=== PATIENT | female | born 1990 | race Caucasian/White ===

== ENCOUNTER 2016-09-13 11:25 | Emergency (ER) | payer BC ==
[2016-09-13] MEDS ORDERED: Ketorolac 30 MG/ML SDV IVPUSH ONE (12:03)
[2016-09-13] MEDS ORDERED: Ondansetron 4 MG/2 ML SDV IVPUSH ONE (12:03)
[2016-09-13] MEDS ORDERED: Morphine 10 MG/ML Syringe IV ONE ×2 (12:03→13:21)
[2016-09-13] MEDS ORDERED: Sodium Chloride 0.9% 1,000 ML IV ONE ×2 (12:03→13:21)
--- NOTE | 2016-09-13 12:25 | EDM.PDOC ---
ED HPI GENERAL MEDICAL PROBLEM - General Chief Complaint: Abdominal Pain Stated Complaint: LOWER ABDOMINAL PAIN/CERVICAL Time Seen by Provider: 09/13/16 11:50 Source of Information: Reports: Patient History Limitations: Reports: No Limitations - History of Present Illness INITIAL COMMENTS - FREE TEXT/NARRATIVE: History of present illness: [26-year-old female comes in complaining of lower pelvic and cervical pain. Patient indicates she has had A ectopic before and subsequent miscarriage and feels this is very similar. Patient indicates that her period is due and she has not had it.] Review of systems: As per history of present illness and below otherwise all systems reviewed and negative. Past medical history: As per history of present illness and as reviewed below otherwise noncontributory. Surgical history: As per history of present illness and as reviewed below otherwise noncontributory. Social history: No reported history of drug or alcohol abuse. Family history: As per history of present illness and as reviewed below otherwise noncontributory. Physical exam: HEENT: Atraumatic, normocephalic, pupils reactive, negative for conjunctival pallor or scleral icterus, mucous membranes moist, throat clear, neck supple, nontender, trachea midline. Lungs: Clear to auscultation, breath sounds equal bilaterally, chest nontender. Heart: S1S2, regular, negative for clicks, rubs, or JVD. Abdomen: Soft, nondistended, diffuse tenderness patient indicates is primarily deep pelvic radiating to her lower back. Negative for masses or hepatosplenomegaly. Negative for costovertebral tenderness. Pelvis: Stable nontender. Genitourinary: Deferred. Rectal: Deferred. Extremities: Atraumatic, negative for cords or calf pain. Neurovascular unremarkable. Neuro: Awake, alert, oriented. Cranial nerves II through XII unremarkable. Cerebellum unremarkable. Motor and sensory unremarkable throughout. Exam nonfocal. Clinical assessment is benign save and as noted in the subjective complaint of deep pelvic pain. Patient is extremely uncomfortable and restless. Ultrasound was negative for any pelvic issues save A small amount of fluid. Patient denies any history of STDs. Patient serum negative for . Patient is aware of these results and is agreeable to follow-up with CHEMICAL RECLAMATION EQUIPMENT OPERATOR indicating she has had some concerns that she might have endometriosis. Diagnostics: [CBC, CMP, Rh, urine, hCG, transvaginal] Therapeutics: [IV fluid, Zofran, Toradol, morphine] Impression: [Abdominal/pelvic pain] Plan: [Brief run of pain medicine follow-up with CHEMICAL RECLAMATION EQUIPMENT OPERATOR] Definitive disposition and diagnosis as appropriate pending reevaluation and review of above. 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 , - Past Surgical History GI Surgical History: Reports: Appendectomy Female Surgical History: Reports: Section, Other (See Below) Other Female Surgeries/Procedures: 1 tube ligation; ectopic Social & Family History - Family History Family Medical History: Noncontributory - Tobacco Use Smoking Status *Q: Never Smoker - Caffeine Use Caffeine Use: Reports: Coffee Caffeine Use Comment: 1 cup daily - Recreational Drug Use Recreational Drug Use: Yes Drug Use in Last 12 Months: Yes Recreational Drug Type: Reports: Marijuana/Hashish Recreational Drug Use Frequency: Binges ED ROS GENERAL - Review of Systems Review Of Systems: See Below (See history of present illness) ED EXAM, GENERAL - Physical Exam Exam: See Below (See history of present illness) Course - Vital Signs Last Recorded V/S: Last Vital Signs Temp 36.6 C 09/13/16 11:37 Pulse 50 L 09/13/16 11:37 Resp 20 09/13/16 11:37 BP 94/63 09/13/16 11:37 Pulse Ox 98 09/13/16 11:37 - Orders/Labs/Meds Orders: Active Orders 24 hr Category Date Time Status OB 1st Tri Sgl 1st Gest [US] Stat Exams 09/13/16 12:05 Taken Labs: Laboratory Tests 09/13/16 09/13/16 09/13/16 Range/Units 11:55 11:55 11:55 WBC 6.42 (4.0-11.0) K/uL RBC 4.18 L (4.30-5.90) M/uL Hgb 12.7 (12.0-16.0) g/dL Hct 38.4 (36.0-46.0) % MCV 91.9 (80.0-98.0) fL MCH 30.4 (27.0-32.0) pg MCHC 33.1 (31.0-37.0) g/dL RDW Std Deviation 44.0 (28.0-62.0) fl RDW Coeff of Jayden 13 (11.0-15.0) % Plt Count 173 (150-400) K/uL MPV 12.70 H (7.40-12.00) fL Neut % (Auto) 55.7 (48.0-80.0) % Lymph % (Auto) 38.5 (16.0-40.0) % [place] % (Auto) 3.9 (0.0-15.0) % Eos % (Auto) 1.6 (0.0-7.0) % Baso % (Auto) 0.3 (0.0-1.5) % Neut # (Auto) 3.6 (1.4-5.7) K/uL Lymph # (Auto) 2.5 H (0.6-2.4) K/uL [place] # (Auto) 0.3 (0.0-0.8) K/uL Eos # (Auto) 0.1 (0.0-0.7) K/uL Baso # (Auto) 0.0 (0.0-0.1) K/uL Nucleated RBC % 0.0 /100WBC Nucleated RBCs # 0 K/uL Sodium 140 (136-146) mmol/L Potassium 4.1 (3.5-5.1) mmol/L Chloride 113 H (98-110) mmol/L Carbon Dioxide 20 L (21-31) mmol/L BUN 20 (6.0-23.0) mg/dL Creatinine 0.9 (0.6-1.5) mg/dL Est Cr Clr Drug Dosing 84.49 mL/min Estimated GFR (MDRD) > 60.0 ml/min Glucose 100 (60-110) mg/dL Calcium 8.5 L (8.8-10.8) mg/dL Total Bilirubin 0.3 (0.1-1.5) mg/dL AST 22 (5-40) IU/L ALT 21 (8-54) IU/L Alkaline Phosphatase 48 (40-150) Total Protein 6.8 (6.0-8.0) g/dL Albumin 4.1 (3.5-5.0) g/dL Globulin 2.7 (2.0-3.5) g/dL Albumin/Globulin Ratio 1.5 (1.3-2.8) HCG, Quant 3.2 mIU/mL Urine Color Urine Appearance Urine pH (5.0-8.0) Ur Specific [place] (1.001-1.035) Urine Protein (NEGATIVE) mg/dL Urine Glucose (UA) (NEGATIVE) mg/dL Urine Ketones (NEGATIVE) mg/dL Urine Occult Blood (NEGATIVE) Urine Nitrite (NEGATIVE) Urine Bilirubin (NEGATIVE) Urine Urobilinogen (<2.0) EU/dL Ur Leukocyte Esterase (NEGATIVE) Urine RBC (0-2/HPF) Urine WBC (0-5/HPF) Ur Epithelial Cells (NONE-FEW) Urine Bacteria (NEGATIVE) Blood Type A POSITIVE 09/13/16 Range/Units 12:10 WBC (4.0-11.0) K/uL RBC (4.30-5.90) M/uL Hgb (12.0-16.0) g/dL Hct (36.0-46.0) % MCV (80.0-98.0) fL MCH (27.0-32.0) pg MCHC (31.0-37.0) g/dL RDW Std Deviation (28.0-62.0) fl RDW Coeff of Jayden (11.0-15.0) % Plt Count (150-400) K/uL MPV (7.40-12.00) fL Neut % (Auto) (48.0-80.0) % Lymph % (Auto) (16.0-40.0) % [place] % (Auto) (0.0-15.0) % Eos % (Auto) (0.0-7.0) % Baso % (Auto) (0.0-1.5) % Neut # (Auto) (1.4-5.7) K/uL Lymph # (Auto) (0.6-2.4) K/uL [place] # (Auto) (0.0-0.8) K/uL Eos # (Auto) (0.0-0.7) K/uL Baso # (Auto) (0.0-0.1) K/uL Nucleated RBC % /100WBC Nucleated RBCs # K/uL Sodium (136-146) mmol/L Potassium (3.5-5.1) mmol/L Chloride (98-110) mmol/L Carbon Dioxide (21-31) mmol/L BUN (6.0-23.0) mg/dL Creatinine (0.6-1.5) mg/dL Est Cr Clr Drug Dosing mL/min Estimated GFR (MDRD) ml/min Glucose (60-110) mg/dL Calcium (8.8-10.8) mg/dL Total Bilirubin (0.1-1.5) mg/dL AST (5-40) IU/L ALT (8-54) IU/L Alkaline Phosphatase (40-150) Total Protein (6.0-8.0) g/dL Albumin (3.5-5.0) g/dL Globulin (2.0-3.5) g/dL Albumin/Globulin Ratio (1.3-2.8) HCG, Quant mIU/mL Urine Color YELLOW Urine Appearance CLEAR Urine pH 6.5 (5.0-8.0) Ur Specific [place] <= 1.005 (1.001-1.035) Urine Protein NEGATIVE (NEGATIVE) mg/dL Urine Glucose (UA) NEGATIVE (NEGATIVE) mg/dL Urine Ketones NEGATIVE (NEGATIVE) mg/dL Urine Occult Blood NEGATIVE (NEGATIVE) Urine Nitrite NEGATIVE (NEGATIVE) Urine Bilirubin NEGATIVE (NEGATIVE) Urine Urobilinogen 0.2 (<2.0) EU/dL Ur Leukocyte Esterase NEGATIVE (NEGATIVE) Urine RBC 0-1 (0-2/HPF) Urine WBC 0-1 (0-5/HPF) Ur Epithelial Cells RARE (NONE-FEW) Urine Bacteria RARE (NEGATIVE) Blood Type Meds: Medications Discontinued Medications Generic Name Dose Route Start Last Admin Trade Name Freq PRN Reason Stop Dose Admin Sodium Chloride 1,000 mls @ 999 mls/hr 09/13/16 12:03 09/13/16 12:21 Normal Saline IV 09/13/16 13:03 999 mls/hr STAT ONE Administration Sodium Chloride 1,000 mls @ 999 mls/hr 09/13/16 13:21 09/13/16 13:44 Normal Saline IV 09/13/16 14:21 999 mls/hr STAT ONE Administration Ketorolac Tromethamine 30 mg 09/13/16 12:03 09/13/16 12:15 Toradol IVPUSH 09/13/16 12:04 30 mg ONETIME ONE Administration Morphine Sulfate 2 mg 09/13/16 12:03 09/13/16 12:23 Morphine IV 09/13/16 12:04 2 mg ONETIME ONE Administration Morphine Sulfate 4 mg 09/13/16 13:21 09/13/16 13:44 Morphine IV 09/13/16 13:22 4 mg ONETIME ONE Administration Ondansetron HCl 8 mg 09/13/16 12:03 09/13/16 12:19 Zofran IVPUSH 09/13/16 12:04 8 mg ONETIME ONE Administration Departure - Departure Time of Disposition: 15:17 Disposition: Home, Self-Care 01 Condition: good Clinical Impression: Abdominal pain - Discharge Information Instructions: Abdominal Pain, Adult, [id number] Forms: ED Department Discharge Additional Instructions: The following information is given to patients seen in the emergency department who are being discharged to home. This information is to outline your options for follow-up care. We provide all patients seen in our emergency department with a follow-up referral. The need for follow-up, as well as the timing and circumstances, are variable depending upon the specifics of your emergency department visit. If you don't have a primary care physician on staff, we will provide you with a referral. We always advise you to contact your personal physician following an emergency department visit to inform them of the circumstance of the visit and for follow-up with them and/or the need for any referrals to a consulting specialist. The emergency department will also refer you to a specialist when appropriate. This referral assures that you have the opportunity for follow-up care with a specialist. All of these measure are taken in an effort to provide you with optimal care, which includes your follow-up. Under all circumstances we always encourage you to contact your private physician who remains a resource for coordinating your care. When calling for follow-up care, please make the office aware that this follow-up is from your recent emergency room visit. If for any reason you are refused follow-up, please contact the [facility] Emergency Department at and asked to speak to the emergency department charge nurse. Take medication as directed Follow-up with CHEMICAL RECLAMATION EQUIPMENT OPERATOR as discussed KATHRYN Follow-up with primary care provider 1-2 days Return to ED as needed as discussed - My Orders Last 24 Hours: My Active Orders 09/13/16 12:05 OB 1st Tri Sgl 1st Gest [US] Stat - Assessment/Plan Last 24 Hours: My Active Orders 09/13/16 12:05 OB 1st Tri Sgl 1st Gest [US] Stat
[2016-09-13 12:35] LABS: CHLORIDE,CL 113 mmol/L (98-110); SODIUM,NA 140 mmol/L (136-146)
[2016-09-13 18:46] VITALS: BP 104/56
--- NOTE | 2016-09-14 11:30 | US ---
EXAM DATE: 09/13/16 PATIENT'S AGE: 26 Patient: TONO BLACKWOOD Facility: [place], [place] Site . Site : 1990 Study: US OB Pelvis [id number] 2:28:31 PM Ordering Physician: Doctor Martin Final Report: INDICATION: . Right lower quadrant pain. Technique: Pelvic ultrasound. Findings: Transabdominal images demonstrate no intrauterine gestational sac. Endometrial thickness is 8 mm. The ovaries are normal size. The left ovary is unremarkable. The right ovary is slightly heterogeneous, with a small posterior cyst possibly corpus luteum. A superficial graded compression exam of the right lower quadrant was performed. The appendix could not be visualized. Trace amount of free fluid is present in the pelvis. IMPRESSION: 1. No detectable intrauterine or retained products of conception. 2. Possible corpus luteum cyst in the right ovary. 3. Trace amount of nonspecific pelvic free fluid. 4. Followup correlation with serial beta HCG level can be considered. 5. No signs for appendicitis on superficial graded compression exam of the right lower quadrant. Dictated by Aiden Gupta MD @ Sep 13 2016 2:42PM (Electronic Signature) Report Signed by Proxy. MARIA ANTONIA
== END 2016-09-13 16:03 | disposition home or self-care (01) ==
LOC: MW.ED 11:25
DX: R10.2 Pelvic and perineal pain (principal); Z79.899 Other long term (current) drug therapy; Z90.49 Acquired absence of other specified parts of digestive tract; Z98.51 Tubal ligation status; Z98.890 Other specified postprocedural states
CPT/HCPCS: 36415; 76801; 80053; 81001; 84702; 85025; 86900; 86901; 96361; 96374; 96375; 96376; 99284; J1885; J2270; J2405; J7040

== ENCOUNTER 2017-04-08 20:02 | Emergency (ER) | payer BC ==
[2017-04-08] MEDS ORDERED: Alum Hydrox/Mag Hydrox/Simeth 15 ML, Metoclopramide 5 MG, Lidocaine 2% 5 ML PO ONE ×3 (20:49)
[2017-04-08] MEDS ORDERED: Sodium Chloride 0.9% 2.5 ML Syringe FLUSH PRN (20:49)
[2017-04-08] MEDS ORDERED: Sodium Chloride 0.9% 10 ML Syringe FLUSH PRN (20:49)
[2017-04-08] MEDS ORDERED: Ketorolac 30 MG/ML SDV IVPUSH ONE (20:49)
[2017-04-08] MEDS ORDERED: Pantoprazole 40 MG Vial IVPUSH ONE (20:51)
--- NOTE | 2017-04-08 21:01 | EDM.PDOC ---
ED HPI GENERAL MEDICAL PROBLEM - General Chief Complaint: Abdominal Pain Stated Complaint: ABD PAIN Time Seen by Provider: 04/08/17 20:15 Source of Information: Reports: Patient History Limitations: Reports: No Limitations - History of Present Illness INITIAL COMMENTS - FREE TEXT/NARRATIVE: History of present illness: [26-year-old female comes in complaining of debilitating upper epigastric pain patient indicates that the pain is so debilitating that in fact it dropped her knees. Patient a slightly grandiose and hyperexcitable.] Review of systems: As per history of present illness and below otherwise all systems reviewed and negative. Past medical history: As per history of present illness and as reviewed below otherwise noncontributory. Surgical history: As per history of present illness and as reviewed below otherwise noncontributory. Social history: No reported history of drug or alcohol abuse. Family history: As per history of present illness and as reviewed below otherwise noncontributory. Physical exam: HEENT: Atraumatic, normocephalic, pupils reactive, negative for conjunctival pallor or scleral icterus, mucous membranes moist, throat clear, neck supple, nontender, trachea midline. Lungs: Clear to auscultation, breath sounds equal bilaterally, chest nontender. Heart: S1S2, regular, negative for clicks, rubs, or JVD. Abdomen: Soft, nondistended, nontender. Negative for masses or hepatosplenomegaly. Negative for costovertebral tenderness. Pelvis: Stable nontender. Genitourinary: Deferred. Rectal: Deferred. Extremities: Atraumatic, negative for cords or calf pain. Neurovascular unremarkable. Neuro: Awake, alert, oriented. Cranial nerves II through XII unremarkable. Cerebellum unremarkable. Motor and sensory unremarkable throughout. Exam nonfocal. Assessment is benign save subjective complaint as noted in the history of present illness patient shouldn't is able to make complete sentences and commonly gesture to the location of her pain which is upper epigastric in nature. Ultrasound of gallbladder negative for any concern Signs and symptoms consistent with GERD Diagnostics: [CBC, CMP, UA, ultrasound of gallbladder] Therapeutics: [] Impression: [Abdominal pain] Plan: [Antiacids] Definitive disposition and diagnosis as appropriate pending reevaluation and review of above. abdominal Pain Score (Numeric/FACES): 7 - Related Data Allergies Allergy/AdvReac Type Severity Reaction Status Date / Time No Known Allergies Allergy Verified 04/08/17 20:22 Home Meds: Home Meds . 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 , Musculoskeletal History: Reports: None Neurological History: Reports: None Psychiatric History: Reports: Autism Endocrine/Metabolic History: Reports: None Hematologic History: Reports: None - Infectious Disease History Infectious Disease History: Reports: Chicken Pox - Past Surgical History HEENT Surgical History: Reports: None GI Surgical History: Reports: Appendectomy Female Surgical History: Reports: Section, Other (See Below) Other Female Surgeries/Procedures: 1 tube ligation; ectopic Social & Family History - Family History Family Medical History: Noncontributory - Tobacco Use Smoking Status *Q: Never Smoker - Caffeine Use Caffeine Use: Reports: Coffee Caffeine Use Comment: 1 cup daily - Recreational Drug Use Recreational Drug Use: Yes Drug Use in Last 12 Months: Yes Recreational Drug Type: Reports: Marijuana/Hashish Recreational Drug Use Frequency: Binges ED ROS GENERAL - Review of Systems Review Of Systems: See Below (See history of present illness) ED EXAM, GENERAL - Physical Exam Exam: See Below (History of present illness) Course - Vital Signs Last Recorded V/S: Last Vital Signs Temp 36.8 C 04/08/17 20:23 Pulse 67 04/08/17 20:23 Resp 16 04/08/17 20:23 BP 110/67 04/08/17 20:23 Pulse Ox 96 04/08/17 20:23 - Orders/Labs/Meds Orders: Active Orders 24 hr Category Date Time Status Gallbladder [Abdomen Ltd] [US] Stat Exams 04/08/17 21:51 Ordered Sodium Chloride 0.9% [Saline Flush] Med 04/08/17 20:49 Active 10 ml FLUSH ASDIRECTED PRN Sodium Chloride 0.9% [Saline Flush] Med 04/08/17 20:49 Active 2.5 ml FLUSH ASDIRECTED PRN Saline Lock Insert [OM.PC] Stat Oth 04/08/17 20:49 Ordered Medication Orders Sodium Chloride (Saline Flush) 10 ml FLUSH ASDIRECTED PRN PRN Reason: Keep Vein Open Last Admin: 04/08/17 21:05 Dose: 10 ml Sodium Chloride (Saline Flush) 2.5 ml FLUSH ASDIRECTED PRN PRN Reason: Keep Vein Open Last Admin: 04/08/17 21:05 Dose: 2.5 ml Labs: Laboratory Tests 04/08/17 04/08/17 04/08/17 Range/Units 20:31 20:31 21:05 WBC 9.83 (4.0-11.0) K/uL RBC 4.68 (4.30-5.90) M/uL Hgb 14.8 (12.0-16.0) g/dL Hct 43.2 (36.0-46.0) % MCV 92.3 (80.0-98.0) fL MCH 31.6 (27.0-32.0) pg MCHC 34.3 (31.0-37.0) g/dL RDW Std Deviation 42.5 (28.0-62.0) fl RDW Coeff of Jayden 13 (11.0-15.0) % Plt Count 194 (150-400) K/uL MPV 12.10 H (7.40-12.00) fL Neut % (Auto) 80.6 H (48.0-80.0) % Lymph % (Auto) 13.6 L (16.0-40.0) % [place] % (Auto) 4.6 (0.0-15.0) % Eos % (Auto) 1.0 (0.0-7.0) % Baso % (Auto) 0.2 (0.0-1.5) % Neut # (Auto) 7.9 H (1.4-5.7) K/uL Lymph # (Auto) 1.3 (0.6-2.4) K/uL [place] # (Auto) 0.5 (0.0-0.8) K/uL Eos # (Auto) 0.1 (0.0-0.7) K/uL Baso # (Auto) 0.0 (0.0-0.1) K/uL Nucleated RBC % 0.0 /100WBC Nucleated RBCs # 0 K/uL Sodium (136-146) mmol/L Potassium (3.5-5.1) mmol/L Chloride (98-110) mmol/L Carbon Dioxide (21-31) mmol/L BUN (6.0-23.0) mg/dL Creatinine (0.6-1.5) mg/dL Est Cr Clr Drug Dosing mL/min Estimated GFR (MDRD) ml/min Glucose (60-110) mg/dL Calcium (8.8-10.8) mg/dL Total Bilirubin (0.1-1.5) mg/dL AST (5-40) IU/L ALT (8-54) IU/L Alkaline Phosphatase (40-150) Troponin I (0.0-0.29) NG/ML Total Protein (6.0-8.0) g/dL Albumin (3.5-5.0) g/dL Globulin (2.0-3.5) g/dL Albumin/Globulin Ratio (1.3-2.8) Amylase (10-90) U/L Lipase (7-80) U/L Urine Color YELLOW Urine Appearance CLEAR Urine pH 6.5 (5.0-8.0) Ur Specific [place] 1.015 (1.001-1.035) Urine Protein NEGATIVE (NEGATIVE) mg/dL Urine Glucose (UA) NEGATIVE (NEGATIVE) mg/dL Urine Ketones NEGATIVE (NEGATIVE) mg/dL Urine Occult Blood NEGATIVE (NEGATIVE) Urine Nitrite NEGATIVE (NEGATIVE) Urine Bilirubin NEGATIVE (NEGATIVE) Urine Urobilinogen 0.2 (<2.0) EU/dL Ur Leukocyte Esterase NEGATIVE (NEGATIVE) Urine RBC 0-1 (0-2/HPF) Urine WBC 0-1 (0-5/HPF) Ur Epithelial Cells FEW (NONE-FEW) Urine Bacteria RARE (NEGATIVE) Urine HCG, Qual NEGATIVE (NEGATIVE) 04/08/17 Range/Units 21:05 WBC (4.0-11.0) K/uL RBC (4.30-5.90) M/uL Hgb (12.0-16.0) g/dL Hct (36.0-46.0) % MCV (80.0-98.0) fL MCH (27.0-32.0) pg MCHC (31.0-37.0) g/dL RDW Std Deviation (28.0-62.0) fl RDW Coeff of Jayden (11.0-15.0) % Plt Count (150-400) K/uL MPV (7.40-12.00) fL Neut % (Auto) (48.0-80.0) % Lymph % (Auto) (16.0-40.0) % [place] % (Auto) (0.0-15.0) % Eos % (Auto) (0.0-7.0) % Baso % (Auto) (0.0-1.5) % Neut # (Auto) (1.4-5.7) K/uL Lymph # (Auto) (0.6-2.4) K/uL [place] # (Auto) (0.0-0.8) K/uL Eos # (Auto) (0.0-0.7) K/uL Baso # (Auto) (0.0-0.1) K/uL Nucleated RBC % /100WBC Nucleated RBCs # K/uL Sodium 139 (136-146) mmol/L Potassium 3.8 (3.5-5.1) mmol/L Chloride 107 (98-110) mmol/L Carbon Dioxide 22 (21-31) mmol/L BUN 20 (6.0-23.0) mg/dL Creatinine 1.1 (0.6-1.5) mg/dL Est Cr Clr Drug Dosing 69.13 mL/min Estimated GFR (MDRD) 59.6 ml/min Glucose 86 (60-110) mg/dL Calcium 9.3 (8.8-10.8) mg/dL Total Bilirubin 0.8 (0.1-1.5) mg/dL AST 19 (5-40) IU/L ALT 16 (8-54) IU/L Alkaline Phosphatase 37 L (40-150) Troponin I < 0.10 (0.0-0.29) NG/ML Total Protein 7.7 (6.0-8.0) g/dL Albumin 4.6 (3.5-5.0) g/dL Globulin 3.1 (2.0-3.5) g/dL Albumin/Globulin Ratio 1.5 (1.3-2.8) Amylase 35 (10-90) U/L Lipase 21 (7-80) U/L Urine Color Urine Appearance Urine pH (5.0-8.0) Ur Specific [place] (1.001-1.035) Urine Protein (NEGATIVE) mg/dL Urine Glucose (UA) (NEGATIVE) mg/dL Urine Ketones (NEGATIVE) mg/dL Urine Occult Blood (NEGATIVE) Urine Nitrite (NEGATIVE) Urine Bilirubin (NEGATIVE) Urine Urobilinogen (<2.0) EU/dL Ur Leukocyte Esterase (NEGATIVE) Urine RBC (0-2/HPF) Urine WBC (0-5/HPF) Ur Epithelial Cells (NONE-FEW) Urine Bacteria (NEGATIVE) Urine HCG, Qual (NEGATIVE) Meds: Medications Generic Name Dose Route Start Last Admin Trade Name Freq PRN Reason Stop Dose Admin Sodium Chloride 10 ml 04/08/17 20:49 04/08/17 21:05 Saline Flush FLUSH 10 ml ASDIRECTED PRN Administration Keep Vein Open Sodium Chloride 2.5 ml 04/08/17 20:49 04/08/17 21:05 Saline Flush FLUSH 2.5 ml ASDIRECTED PRN Administration Keep Vein Open Discontinued Medications Generic Name Dose Route Start Last Admin Trade Name Freq PRN Reason Stop Dose Admin Al Hydroxide/Mg Hydroxide 15 0 ml 04/08/17 20:49 04/08/17 21:05 ml/ Metoclopramide HCl 5 mg/ PO 04/08/17 20:50 25 each Lidocaine HCl 5 ml ONETIME ONE Administration Ketorolac Tromethamine 30 mg 04/08/17 20:49 04/08/17 21:04 Toradol IVPUSH 04/08/17 20:50 30 mg ONETIME ONE Administration Pantoprazole Sodium 80 mg 04/08/17 20:51 04/08/17 21:09 Protonix Iv IVPUSH 04/08/17 20:52 80 mg .BOLUS ONE Administration Departure - Departure Time of Disposition: 23:12 Disposition: Home, Self-Care 01 Condition: Good Clinical Impression: Gastritis, Abdominal pain - Discharge Information Instructions: Abdominal Pain, Adult, [id number] Referrals: Omar Abraham MD [Primary Care Provider] - Forms: ED Department Discharge Additional Instructions: The following information is given to patients seen in the emergency department who are being discharged to home. This information is to outline your options for follow-up care. We provide all patients seen in our emergency department with a follow-up referral. The need for follow-up, as well as the timing and circumstances, are variable depending upon the specifics of your emergency department visit. If you don't have a primary care physician on staff, we will provide you with a referral. We always advise you to contact your personal physician following an emergency department visit to inform them of the circumstance of the visit and for follow-up with them and/or the need for any referrals to a consulting specialist. The emergency department will also refer you to a specialist when appropriate. This referral assures that you have the opportunity for follow-up care with a specialist. All of these measure are taken in an effort to provide you with optimal care, which includes your follow-up. Under all circumstances we always encourage you to contact your private physician who remains a resource for coordinating your care. When calling for follow-up care, please make the office aware that this follow-up is from your recent emergency room visit. If for any reason you are refused follow-up, please contact the [facility] Emergency Department at and asked to speak to the emergency department charge nurse. Your workup is consistent with GERD and possibly an ulcer You've been prescribed medication to help with this Please follow-up with your primary care provider Return to ED as needed as discussed - My Orders Last 24 Hours: My Active Orders 04/08/17 20:49 Sodium Chloride 0.9% [Saline Flush] 10 ml FLUSH ASDIRECTED PRN Sodium Chloride 0.9% [Saline Flush] 2.5 ml FLUSH ASDIRECTED PRN Saline Lock Insert [OM.PC] Stat 04/08/17 21:51 Gallbladder [Abdomen Ltd] [US] Stat - Assessment/Plan Last 24 Hours: My Active Orders 04/08/17 20:49 Sodium Chloride 0.9% [Saline Flush] 10 ml FLUSH ASDIRECTED PRN Sodium Chloride 0.9% [Saline Flush] 2.5 ml FLUSH ASDIRECTED PRN Saline Lock Insert [OM.PC] Stat 04/08/17 21:51 Gallbladder [Abdomen Ltd] [US] Stat
[2017-04-08 21:54] LABS: CHLORIDE,CL 107 mmol/L (98-110); SODIUM,NA 139 mmol/L (136-146)
[2017-04-08 23:41] VITALS: BP 115/70
--- NOTE | 2017-04-09 16:18 | US ---
EXAM DATE: 04/08/17 PATIENT'S AGE: 26 Patient: TONO BLACKWOOD Facility: [place], [place] Site . Site : 1990 Study: US Abdomen [id number]/4/2018 10:36:50 PM Ordering Physician: Doctor Martin Final Report: INDICATION: Abdominal pain, nausea. Epigastric pain with radiation to the mid to lower back. HCG level negative. TECHNIQUE: Ultrasound abdomen limited. Sonographic images of the right upper quadrant were obtained using madden-scale and color Doppler images. COMPARISON: None. FINDINGS: Liver: Normal in size and echotexture. No masses. No intrahepatic biliary dilatation. Gallbladder: No stones or sludge. Normal wall thickness. No pericholecystic fluid. Common bile duct: 2 mm. Pancreas: Unremarkable. Right kidney: 9.1 cm. Normal echotexture and cortex. No masses, stones, or hydronephrosis. Vasculature: IVC and main portal vein unremarkable. IMPRESSION: Unremarkable right upper quadrant ultrasound. Dictated by Rodolfo Rebolledo MD @ 04/08/2017 10:56:04 PM Dictated by: Rodolfo Rebolledo MD @ 04/08/2017 22:56:10 (Electronic Signature) Report Signed by Proxy. MARIA ANTONIA
== END 2017-04-08 23:27 | disposition home or self-care (01) ==
LOC: MW.ED 20:02
DX: K29.70 Gastritis, unspecified, without bleeding (principal)
CPT/HCPCS: 36415; 76705; 80053; 81001; 81025; 82150; 83690; 84484; 85025; 87804; 96374; 96375; 99284; A9270; C9113; J1885

== ENCOUNTER 2017-08-20 20:15 | Emergency (ER) | payer BC ==
[2017-08-20 20:47] VITALS: BP 117/48
[2017-08-20] MEDS ORDERED: cefTRIAXone 1,000 MG in Lidocaine 1% 4 ML IM ONE (20:53)
[2017-08-20] MEDS ORDERED: Albuterol/Ipratropium 3.0-0.5 MG/3 ML Neb Soln NEB ONE (20:53)
[2017-08-20] MEDS ORDERED: LORazepam 1 MG Tab PO ONE (22:17)
--- NOTE | 2017-08-20 22:21 | EDM.PDOC ---
ED HPI GENERAL MEDICAL PROBLEM - General Chief Complaint: Respiratory Problem Stated Complaint: SHORTNESS OF BREATH/SINUS INFECTION Time Seen by Provider: 08/20/17 22:18 Source of Information: Reports: Patient - History of Present Illness INITIAL COMMENTS - FREE TEXT/NARRATIVE: HISTORY AND PHYSICAL: History of present illness: [Patient presents with sinus pain and pressure right greater than left increasing over the last week She has anxiety and shortness of breath but does also have persistent cough over the last week DuoNeb now has improved although she is anxious as she is coughing at current He is in no distress no purse lipped breathing no retractions no tripoding actually no apparent distress whatsoever No fever nausea vomiting chills sweats no chest pain headache dizziness palpitation no bowel or urine symptoms ] Review of systems: As per history of present illness and below otherwise all systems reviewed and negative. Past medical history: As per history of present illness and as reviewed below otherwise noncontributory. Surgical history: As per history of present illness and as reviewed below otherwise noncontributory. Social history: No reported history of drug or alcohol abuse. Family history: As per history of present illness and as reviewed below otherwise noncontributory. Physical exam: HEENT: Atraumatic, normocephalic, pupils reactive, negative for conjunctival pallor or scleral icterus, mucous membranes moist, throat clear, neck supple, nontender, trachea midline. Lungs: Clear to auscultation, breath sounds equal bilaterally, chest nontender. Heart: S1S2, regular, negative for clicks, rubs, or JVD. Abdomen: Soft, nondistended, nontender. Negative for masses or hepatosplenomegaly. Negative for costovertebral tenderness. Pelvis: Stable nontender. Genitourinary: Deferred. Rectal: Deferred. Extremities: Atraumatic, negative for cords or calf pain. Neurovascular unremarkable. Neuro: Awake, alert, oriented. Cranial nerves II through XII unremarkable. Cerebellum unremarkable. Motor and sensory unremarkable throughout. Exam nonfocal. Diagnostics: [ chest 2 views ] Therapeutics: [ DuoNeb 1 g Rocephin IM Lorazepam 1 mg by mouth now Amoxicillin Medrol Dosepak HFA Ativan No. 10 no r0.5 mg efill ] Impression: [ acute sinusitis Bronchitis Anxiety ] Definitive disposition and diagnosis as appropriate pending reevaluation and review of above. head Pain Score (Numeric/FACES): 6 - Related Data Allergies Allergy/AdvReac Type Severity Reaction Status Date / Time No Known Allergies Allergy Verified 08/20/17 20:54 Home Meds: Home Meds . [No Known Home Meds] 08/20/17 [History] Past Medical History - Past Health History Medical/Surgical History: Denies Medical/Surgical History HEENT History: Reports: None Cardiovascular History: Reports: None Respiratory History: Reports: None Genitourinary History: Reports: Other (See Below) Other Genitourinary History: ovarian cyst, [employer] History: Reports: Ectopic , Musculoskeletal History: Reports: None Neurological History: Reports: None Psychiatric History: Reports: Autism Endocrine/Metabolic History: Reports: None Hematologic History: Reports: None - Infectious Disease History Infectious Disease History: Reports: Chicken Pox - Past Surgical History HEENT Surgical History: Reports: None GI Surgical History: Reports: Appendectomy Female Surgical History: Reports: Section, Other (See Below) Other Female Surgeries/Procedures: 1 tube ligation; ectopic Dermatological Surgical History: Reports: Plastic Surgical Reconstruction/Repair Social & Family History - Family History Family Medical History: Noncontributory - Tobacco Use Smoking Status *Q: Never Smoker - Caffeine Use Caffeine Use: Reports: Coffee Caffeine Use Comment: 1 cup daily - Recreational Drug Use Recreational Drug Use: Yes Drug Use in Last 12 Months: Yes Recreational Drug Type: Reports: Marijuana/Hashish Recreational Drug Use Frequency: Daily ED ROS GENERAL - Review of Systems Review Of Systems: ROS reveals no pertinent complaints other than HPI. ED EXAM, GENERAL - Physical Exam Exam: See Below Course - Vital Signs Last Recorded V/S: Last Vital Signs Temp 97.1 F 08/20/17 20:46 Pulse 59 L 08/20/17 20:46 Resp 18 08/20/17 20:46 BP 117/48 L 08/20/17 20:46 Pulse Ox 98 08/20/17 20:46 - Orders/Labs/Meds Orders: Active Orders 24 hr Category Date Time Status RT Aerosol Therapy [RC] ASDIRECTED Care 08/20/17 20:54 Active Chest 2V [CR] Stat Exams 08/20/17 20:54 Taken HCG QUALITATIVE,URINE [URCHEM] Stat Lab 08/20/17 21:38 Ordered LORazepam [Ativan] Med 08/20/17 22:17 Once 1 mg PO ONETIME ONE Labs: Laboratory Tests 08/20/17 Range/Units 21:38 Urine HCG, Qual NEGATIVE (NEGATIVE) Meds: Medications Discontinued Medications Generic Name Dose Route Start Last Admin Trade Name David PRN Reason Stop Dose Admin Albuterol/Ipratropium 3 ml 08/20/17 20:53 08/20/17 21:39 Duoneb 3.0-0.5 Mg/3 Ml NEB 08/20/17 20:54 3 ml ONETIME ONE Administration Ceftriaxone Sodium 1,000 mg/ 4 mls @ 4 mls/sec 08/20/17 20:53 08/20/17 21:39 Lidocaine HCl IM 08/20/17 20:54 4 mls/sec ONETIME ONE Administration Departure - Departure Time of Disposition: 22:20 Disposition: Home, Self-Care 01 Condition: Good Clinical Impression: Sinusitis, Bronchitis, Anxiety about health - Discharge Information Referrals: Omar Abraham MD [Primary Care Provider] - Additional Instructions: Medication as prescribed Return if symptoms persist or worsen Follow-up with primary care in 2 weeks sooner as needed Patient does have a bobtail driver which will provide transportation [facility] [address] [place] [address] The following information is given to patients seen in the emergency department who are being discharged to home. This information is to outline your options for follow-up care. We provide all patients seen in our emergency department with a follow-up referral. The need for follow-up, as well as the timing and circumstances, are variable depending upon the specifics of your emergency department visit. If you don't have a primary care physician on staff, we will provide you with a referral. We always advise you to contact your personal physician following an emergency department visit to inform them of the circumstance of the visit and for follow-up with them and/or the need for any referrals to a consulting specialist. The emergency department will also refer you to a specialist when appropriate. This referral assures that you have the opportunity for follow-up care with a specialist. All of these measure are taken in an effort to provide you with optimal care, which includes your follow-up. Under all circumstances we always encourage you to contact your private physician who remains a resource for coordinating your care. When calling for follow-up care, please make the office aware that this follow-up is from your recent emergency room visit. If for any reason you are refused follow-up, please contact the [facility] emergency department at and asked to speak to the emergency department charge nurse. - My Orders Last 24 Hours: My Active Orders 08/20/17 20:54 RT Aerosol Therapy [RC] ASDIRECTED Chest 2V [CR] Stat 08/20/17 21:38 HCG QUALITATIVE,URINE [URCHEM] Stat 08/20/17 22:17 LORazepam [Ativan] 1 mg PO ONETIME ONE - Assessment/Plan Last 24 Hours: My Active Orders 08/20/17 20:54 RT Aerosol Therapy [RC] ASDIRECTED Chest 2V [CR] Stat 08/20/17 21:38 HCG QUALITATIVE,URINE [URCHEM] Stat 08/20/17 22:17 LORazepam [Ativan] 1 mg PO ONETIME ONE
--- NOTE | 2017-08-23 09:45 | CR ---
EXAM DATE: 08/20/17 PATIENT'S AGE: 27 Patient: TONO BLACKWOOD Facility: [place], [place] Site . Site : 1990 Study: XRay Chest [id number]/[id number] 10:02:46 PM Ordering Physician: Clemencia Ludwig Final Report: INDICATION: Cough times 1.5 weeks. TECHNIQUE: Upright PA and lateral views. COMPARISON: None. FINDINGS: Heart mediastinum and pulmonary vessels are normal. Lungs are clear. No bony abnormalities. No infiltrate, pneumothorax nor pleural fluid collection. IMPRESSION: Negative chest. Dictated by Niko Yi MD @ Aug 20 2017 10:09PM (Electronic Signature) Report Signed by Proxy. MARIA ANTONIA
== END 2017-08-20 23:12 | disposition home or self-care (01) ==
LOC: MW.ED 20:15
DX: J01.90 Acute sinusitis, unspecified (principal); J40 Bronchitis, not specified as acute or chronic; F41.9 Anxiety disorder, unspecified
CPT/HCPCS: 71046; 81025; 94640; 96372; 99284; A9270; J0696; J2001